=== PATIENT | female | born 1940 | race Caucasian/White ===

== ENCOUNTER 2022-12-31 01:03 | Day surgery (SDC) | payer MEDICARE, SELFPAY ==
[2022-12-28 09:40] VITALS: BMI 33.0
[2022-12-31] VITALS (15 sets, daily range): BP systolic 102–152; BP diastolic 56–104; PULSE 58–79; RESP 16–25; TEMP 36.4; O2SAT 95–100; BMI 34.6
[2022-12-31 08:50] LABS: Basophils Absolute Auto 0.1 K/mm3 (0.0-0.1); Basophils Percent Auto 1.1 % (0.2-1.2); Eosinophils Absolute Auto 0.1 K/mm3 (0-0.3); Eosinophils Percent Auto 3.1 % (0-4.4); Hematocrit 37.8 % (37.0-47.0); Immature Granulocyte Absolute 0.01 K/mm3 (0.00-0.031); Immature Granulocyte Percent A 0.2 % (0-0.5); Lymphocytes Absolute Auto 1.24 K/mm3 (0.9-3.2); Lymphocytes Percent Auto 27.5 % (18.3-44.2); Mean Corpuscular HGB Conc 31.7 g/dl (32-36); Mean Corpuscular Hemoglobin 29.9 pg (26-34); Mean Platelet Volume 10.3 fl (7.4-10.4); Monocytes Absolute Auto 0.5 K/mm3 (0.1-0.6); Monocytes Percent Auto 11.1 % (2.6-8.5); Neutrophils Absolute Auto 2.6 K/mm3 (1.3-6.7); Platelet Count Result 206 k/mm3 (150-375); Red Blood Count 4.02 M/mm3 (4.2-5.4); Red Cell Distribution Width 13.9 % (11.5-14.5); White Blood Count 4.5 K/mm3 (4.5-10.0)
[2022-12-31 08:52] LABS: Anion Gap 5 mmol/L (8-16); Blood Urea Nitrogen 20 mg/dL (7-17); Calcium 9.2 mg/dL (8.4-10.2); Carbon Dioxide 29 mmol/L (22-30); Chloride 105 mmol/L (98-107); Estimated CRCL calculation 60 ml/min; Estimated Glomerular Filt Rate > 60; Glucose 115 mg/dL (65-110); Potassium 4.1 mmol/L (3.4-5.0); Sodium 139 mmol/L (137-145)
[2022-12-31 08:54] LABS: INR 0.9; Prothrombin Time 12.8 Seconds (11.1-14.7)
--- NOTE | 2022-12-31 09:34 | WPDMODSED ---
Moderate Sedation Note-Pt Data Patient Data Diagnosis: Coronary artery disease with remote history of LAD stenting Intermittent symptoms of chest pain and CASH Abnormal nuclear stress test Present Complaint: Episodes of nitrate responsive chest pain as well as exertional dyspnea Procedure to be performed/Plan: Left heart catheterization Allergies Allergy/AdvReac Type Severity Reaction Status Date / Time prednisone Allergy Unknown Rash Verified 12/31/22 08:33 sulfanilamide Allergy Unknown Unknown Verified 12/31/22 08:33 Sulfa (Sulfonamide Allergy Unknown Verified 12/31/22 08:33 Antibiotics) Home Medications Medication Instructions Recorded Confirmed Type acetaminophen 325 mg tablet 650 mg PO Q8H PRN Pain 04/24/21 12/31/22 History (Tylenol) ascorbic acid (vitamin C) 1,000 mg 1 g PO BID 04/24/21 12/31/22 History tablet aspirin 81 mg tablet,delayed 81 mg PO DAILY 04/24/21 12/31/22 History release (Adult Aspirin Regimen) cholecalciferol (vitamin D3) 125 125 mcg PO DAILY 04/24/21 12/31/22 History mcg (5,000 unit) capsule duloxetine 30 mg capsule,delayed 30 mg PO HS 04/24/21 12/31/22 History release isosorbide mononitrate 60 mg 60 mg PO DAILY 04/24/21 12/31/22 History tablet,extended release 24 hr levothyroxine 100 mcg capsule 100 mcg PO DAILY 04/24/21 12/31/22 History losartan 50 mg tablet 50 mg PO DAILY 04/24/21 12/31/22 History magnesium 250 mg tablet 250 mg PO HS 04/24/21 12/31/22 History multivitamin 1 tablet PO DAILY 04/24/21 12/31/22 History omeprazole 20 mg capsule,delayed 20 mg PO DAILY 04/24/21 12/31/22 History release rosuvastatin 20 mg tablet (Crestor) 40 mg PO HS 04/24/21 12/31/22 History tramadol 50 mg tablet 50 mg PO Q6H PRN Moderate Pain 04/24/21 12/28/22 History (Scale Score 5-6) vitamin B complex (B 1 tablet PO DAILY 04/24/21 12/31/22 History Complex-Vitamin B12 tablet) coenzyme Q10 100 mg capsule 100 mg PO DAILY 12/28/22 12/31/22 History ferrous sulfate 140 mg (45 mg 140 mg PO EVERY OTHER DAY 12/28/22 12/28/22 History iron) tablet,extended release krill oil 500 mg capsule 500 mg PO DAILY 12/28/22 12/31/22 History mecobalamin (vitamin B12) 1,000 3,000 mcg PO DAILY 12/28/22 12/31/22 History mcg chewable tablet (B12 Active) metoprolol succinate 50 mg 50 mg PO HS 12/28/22 12/31/22 History tablet,extended release 24 hr nitroglycerin 0.4 mg sublingual 0.4 mg sublingual Q5M PRN Chest 12/28/22 12/28/22 History tablet Pain quercetin 500 mg capsule 800 mg PO DAILY 12/28/22 12/31/22 History Current Medications: Active Medications Sodium Chloride (Normal Saline Iv) 500 mls @ 100 mls/hr IV CONT .Q5H PAUL Sedation/Anesthesia: No previous sedation/anesthesia problems (including family history). [facility] Past Medical History Medical History (Updated 04/24/21 @ 10:32 by Jonelle Anderson MA) Back pain Constipation GERD (gastroesophageal reflux disease) Hip pain History of Hyde's esophagus History of cardiac disorder History of carotid artery disease History of cataract History of hypertension Kidney stones Osteopenia Spinal stenosis Surgical History Surgical History (Updated 04/24/21 @ 09:59 by Jonelle Anderson MA) H/O heart artery stent (~1997) History of hysterectomy (~1989) Family History Family History (Updated 08/11/12 @ 13:11 by DOCTOR UNKNOWN) Other Family history of arthritis Social History Social History Smoking packs per day: 0 Smoking cigarettes per day: 0.0 Smoking status: Never smoker Second hand tobacco smoke exposure: No Alcohol intake: never Substance use: never Substance use type: does not use Living arrangements: with family Additional living arrangements comments: LIVES WITH Spiritual care concerns: No Mod Sed Physical Exam Physical Exam Pre Procedural Exam: Normal: Neck, Throat, Airway, Lungs, Heart Size, Heart Rate, Heart Rhythm, Neuro Exam and Extremities and Variation: Ap
--- NOTE | 2022-12-31 09:36 | PM.IMHP ---
H&P: HPI History of Present Illness Date/Time: 12/31/22 09:36 Chief Complaint: Exertional dyspnea, intermittent episodes of chest pain Narrative: This is an 82-year-old woman followed by my partner, Dr. Shearer. She is on the schedule today as an outpatient for follow-up left heart catheterization because of symptoms of exertional dyspnea, occasional nitrate responsive chest pain and an abnormal nuclear stress test. I have not seen this patient prior to today's procedure. She says that she has been having symptoms of shortness of breath with routine activities that have not previously bothers her. In addition to this she has occasional episodes of some chest discomfort that seems to be occurring in an unpredictable fashion but does seem to be nitrate responsive. Her history of coronary artery disease apparently dates back to 1997 at which time a proximal LAD lesion was stented elsewhere. According to the records she did have a follow-up angiogram about 3 years ago that did not show any significant new coronary lesions. Because of the symptoms she had a nuclear stress test done in the office recently which shows an apical lateral defect and normal left ventricular systolic function. In this situation a follow-up angiogram has been recommended for today. Review of Systems Constitutional: Constitutional: Reports lethargy Eyes: Eyes: Reports no additional eye complaints ENT: Reports system reviewed and no additional complaints, except as documented Cardiovascular: Cardiovascular: Reports as per HPI Respiratory: Respiratory: Reports dyspnea on exertion Gastrointestinal: Gastrointestinal: Reports no additional gastrointestinal complaints Musculoskeletal: Musculoskeletal: Reports no additional musculoskeletal complaints Integumentary/Breasts: Skin/Breast: Reports system reviewed and no additional complaints, except as docu Neurologic: Reports system reviewed and no additional complaints, except as documented [facility] Past Medical History Medical History (Updated 12/31/22 @ 09:42 by Nate Pagan MD) Back pain Constipation GERD (gastroesophageal reflux disease) Hip pain History of Hyde's esophagus History of cardiac disorder History of carotid artery disease History of cataract History of hypertension Kidney stones Osteopenia Spinal stenosis Surgical History Surgical History (Updated 04/24/21 @ 09:59 by Jonelle Anderson MA) H/O heart artery stent (~1997) History of hysterectomy (~1989) Family History Family History (Updated 08/11/12 @ 13:11 by DOCTOR UNKNOWN) Other Family history of arthritis Social History Social History Smoking packs per day: 0 Smoking cigarettes per day: 0.0 Smoking status: Never smoker Second hand tobacco smoke exposure: No Alcohol intake: never Substance use: never Substance use type: does not use Living arrangements: with family Additional living arrangements comments: LIVES WITH Spiritual care concerns: No Meds Home Medications and Allergies Home Medications Medication Instructions Recorded Confirmed Type acetaminophen 325 mg tablet 650 mg PO Q8H PRN Pain 04/24/21 12/31/22 History (Tylenol) ascorbic acid (vitamin C) 1,000 mg 1 g PO BID 04/24/21 12/31/22 History tablet aspirin 81 mg tablet,delayed 81 mg PO DAILY 04/24/21 12/31/22 History release (Adult Aspirin Regimen) cholecalciferol (vitamin D3) 125 125 mcg PO DAILY 04/24/21 12/31/22 History mcg (5,000 unit) capsule duloxetine 30 mg capsule,delayed 30 mg PO HS 04/24/21 12/31/22 History release isosorbide mononitrate 60 mg 60 mg PO DAILY 04/24/21 12/31/22 History tablet,extended release 24 hr levothyroxine 100 mcg capsule 100 mcg PO DAILY 04/24/21 12/31/22 History losartan 50 mg tablet 50 mg PO DAILY 04/24/21 12/31/22 History magnesium 250 mg tablet 250 mg PO HS 04/24/21 12/31/22 History multivitamin 1 tablet PO DAILY 04/24/21 12/31/22 History omeprazo
--- NOTE | 2022-12-31 10:17 | WPDCARDPROC ---
Cardiac Cath Procedure Note Date of procedure:: 12/31/22 Performing physician:: Nate Pagan MD Indication:: Exertional dyspnea coronary artery disease with previous PCI abnormal nuclear stress test Brief clinical history:: this is an 82-year-old woman with a history of coronary disease who underwent stenting of the proximal LAD many years ago. She has been reporting symptoms of exertional fatigue and some shortness of breath. A nuclear stress test shows a small apical lateral defect. For this reason a follow-up angiogram has been recommended. Procedure Procedure performed:: Left ventriculogram coronary angiogram Sedation/Medication given:: fentanyl 50 mg Versed 2 mg case start time 9:59 a.m. case end time 10:11 a.m. sedation provided by Jennifer Houston RN, trained observer Access site:: right femoral artery Estimated blood loss:: 20 cc Procedure note:: patient was brought to the cardiac catheterization lab in a postabsorptive state where the right femoral triangle was prepared and draped in the fashion. Anesthesia was provided with 1% lidocaine infiltrated locally. Using the modified Seldinger technique a 5 [place] vascular sheath was placed into the right femoral artery. Left heart catheterization for. I 1st used a 5 [place] angled pigtail catheter to document left-sided hemodynamics and to inject a left ventriculogram in TONY projection. Following this I used standard 5 [place] FL4 catheter to engage and inject the left coronary artery and then a 5 [place] JR4 catheter to engage and inject the right coronary artery. Cineangiograms were reviewed and the case was terminated. An angiogram was performed to the femoral artery through the sheath after which I decided to have the sheath with direct manual compression. 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 Findings:: Hemodynamics: Central aortic pressure is 148 over 62 left ventricle 148 over 80 end-diastolic pressure 16 there is no gradient upon pullback across the aortic valve. Left ventricle: The LV is size all segments contract appropriately the global ejection fraction is 60% by visual estimation there were no regional wall motion abnormalities. The left main coronary artery is large in caliber and is very short, widely patent the left anterior descending is medium caliber artery extending down to at the cardiac apex. There is visible stent material in the proximal LAD. There are no stenotic lesions seen in the LAD no evidence of loss of lumen in the previously stented segment. The circumflex is a medium caliber artery giving rise to the marginal branches. The circumflex system is angiographically free of disease. The right coronary artery is relatively large in caliber and dominant to the posterior circulation. The right coronary artery is angiographically free of disease. Conclusion:: 1. Right coronary dominant circulation with no significant evidence of stenotic coronary lesion at this time 2. previously deployed stent in the proximal LAD from 1997 remains nicely patent today. 3. Normal left ventricular systolic function 4. false-positive nuclear stress test Nate Fernando MD FACC
== END 2022-12-31 16:00 | disposition home or self-care (01) ==
PROVIDERS: Visit Provider Specialist
PROC: 4A023N7 Measurement of Cardiac Sampling and Pressure, Left Heart, Percutaneous Approach (ICD-10-PCS; CPT 93452; principal; 2022-12-31 10:00)
DX: R06.09 Other forms of dyspnea (principal); R07.9 Chest pain, unspecified; I25.10 Atherosclerotic heart disease of native coronary artery without angina pectoris; K21.9 Gastro-esophageal reflux disease without esophagitis; I10 Essential (primary) hypertension; Z79.82 Long term (current) use of aspirin; Z79.891 Long term (current) use of opiate analgesic
CPT/HCPCS: 36415; 80048; 85025; 85610; 93458; C1887; C1894; J0461; J1644; J2250; J3010; J7040

== ENCOUNTER 2023-08-14 08:50 | Outpatient (CLI) | payer MEDICARE, SELFPAY ==
--- NOTE | ~2023-08-14 | XR_ITS ---
AP view of the pelvis and AP and lateral views of the right hip Clinical history: Pain Findings: No acute fracture or dislocation is seen. Osseous alignment is anatomic. Bilateral hip and SI joint spaces are preserved. Soft tissues are unremarkable. Impression: No significant abnormality is seen. Reviewed, dictated and finalized at [facility]. Impression: No significant abnormality is seen.
--- NOTE | ~2023-08-14 | XR_ITS ---
Right wrist Technique: PA, oblique, lateral, and ulnar deviation views were obtained. Clinical History: Osteoarthritis Findings: No acute fracture or dislocation is seen. There is severe degenerative change of the first CMC joint and triscaphe joint. Soft tissues are unremarkable. 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 Reviewed, dictated and finalized at location . 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
== END 2023-08-14 08:51 | disposition home or self-care (01) ==
PROVIDERS: Visit Provider Orthopaedic Surgery
DX: M19.031 Primary osteoarthritis, right wrist (principal); M25.551 Pain in right hip
CPT/HCPCS: 73110; 73502